=== PATIENT | female | born 1995 | race Hispanic/Latino ===

== ENCOUNTER 2023-09-15 08:07 | Inpatient (IN) | payer OTHER, SELFPAY ==
[2023-09-15] MEDS ORDERED: LACTATED RINGERS 500 ML 500 ML IV PRN (08:30)
[2023-09-15] MEDS ORDERED: EPHEDRINE SULFATE 50 MG/ML AMPULE IVP PRN (08:30)
[2023-09-15] MEDS ORDERED: ROPIVACAINE 0.2% 2MG/ML 100ML VIAL EP SCH (08:30)
[2023-09-15] MEDS ORDERED: NALOXONE HCL 0.4 MG/1 ML ML IV PRN (08:30)
[2023-09-15] MEDS ORDERED: MEPERIDINE-PF 50 MG/ML SYG IVP PRN (08:30)
[2023-09-15] MEDS ORDERED: PROMETHAZINE HCL 25 MG/ML 1ML AMPULE IM PRN (08:30)
[2023-09-15] MEDS ORDERED: LIDOCAINE HCL 1% 20 ML VIAL ONE (08:43)
[2023-09-15] MEDS: LACTATED RINGERS 1000ML 1,000 ML IV PRN (08:47)
[2023-09-15] MEDS: AMPICILLIN 2GM+NS 100ML 100 ML IV SCH (08:47)
[2023-09-15 08:49] LABS: MEAN CORPUSCULAR HEMOGLOBIN 29.3 pg (27.0-33.0); MEAN CORPUSCULAR HGB CONC 33.9 g/dL (32.0-36.0); MEAN CORPUSCULAR VOLUME 86.5 fL (79-99); RED BLOOD CELL COUNT(AUTO) 4.16 MIL/uL (4.00-5.50); RED CELL DISTRIBUTION WIDTH 15.4 % (11.0-15.5); WHITE BLOOD COUNT (AUTO) 4.9 K/uL (4.8-10.8)
[2023-09-15 08:50] LABS: ADD UA MICROSCOPIC YES; APPEARANCE,URINE CLEAR (CLEAR); BILIRUBIN,URINE NEGATIVE (NEGATIVE); COLOR,URINE LIGHT-YELLOW (YELLOW); GLUCOSE, URINE (UA) NEGATIVE (NEGATIVE); KETONES,URINE 20 mg/dL (NEGATIVE); LEUKOCYTE ESTERASE ,URINE 250 Leu/uL (NEGATIVE); NITRATE,URINE NEGATIVE (NEGATIVE); OCCULT BLOOD,URINE NEGATIVE (NEGATIVE); PROTEIN,URINE 10 mg/dL (NEGATIVE); UROBILINOGEN,URINE 0.2 mg/dL (0.2-1.0)
[2023-09-15 08:52] LABS: MUCUS,URINE RARE LPF (None Seen); RBC,URINE 0-1 /HPF (0-1); SQUAMOUS EPITHELIAL CELL,UR MOD /HPF (0-2)
[2023-09-15 09:02] LABS: AMPHET/METH SCREEN,URINE NEGATIVE (NEGATIVE); BARBITURATE SCREEN, URINE NEGATIVE (NEGATIVE); BENZODIAZEPINES SCREEN,URINE NEGATIVE (NEGATIVE); CANNABINOID SCREEN,URINE NEGATIVE (NEGATIVE); COCAINE SCREEN,URINE NEGATIVE (NEGATIVE); OPIATE SCREEN,URINE NEGATIVE (NEGATIVE); PHENCYCLIDINE SCREEN,URINE NEGATIVE (NEGATIVE)
[2023-09-15 09:23] LABS: HIV 1&2 ANTIBODY Non-Reactive (Negative); HIV-1 p24 Antigen Non-Reactive (Negative)
[2023-09-15] MEDS ORDERED: METHYLERGONOVINE MALEATE 0.2 MG/1 ML ML IM SCH (09:40)
[2023-09-15] MEDS ORDERED: ACETAMINOPHEN 325 MG TAB PO PRN (10:30)
[2023-09-15] MEDS ORDERED: ACETAMINOPHEN WITH CODEINE 1 TAB TAB PO PRN (10:30)
[2023-09-15] MEDS ORDERED: OXYTOCIN-LR 30 UNITS/500ML 500 ML IV SCH (10:30)
[2023-09-15] MEDS ORDERED: LANOLIN 30GM OINTMENT TP PRN (10:30)
[2023-09-15] MEDS: OXYTOCIN-LR 30 UNITS/500ML 500 ML IV SCH (10:43)
[2023-09-15] MEDS: IBUPROFEN 600 MG TABLET PO PRN (11:29)
[2023-09-15 14:34] LABS: RAPID PLASMA REAGIN NONREACTIVE (NONREACTIVE)
[2023-09-15 15:40] VITALS: BP 112/70; PULSE 61; RESP 20
[2023-09-15] MEDS: BENZOCAINE/LANOLIN/ALOE VERA 60 ML AEROSOL TP PRN (17:20)
[2023-09-15] MEDS: WITCH HAZEL 1 PAD TP PRN (17:21)
[2023-09-15] MEDS: DIPH,PERTUSS(ACELL),TET VAC/PF 0.5 ML VIAL IM PRN (17:22)
[2023-09-15 18:52] VITALS: BP 108/63; PULSE 52; RESP 13
[2023-09-15 19:30] VITALS: PULSE 62
[2023-09-15] MEDS: DOCUSATE SODIUM 100 MG CAP PO SCH (20:21)
[2023-09-15] MEDS: AMPICILLIN 1GM+NS 50ML 50 ML IV SCH (20:58)
[2023-09-15 22:04] LABS: HEMATOCRIT 31.4 % (36-48); MEAN CORPUSCULAR HEMOGLOBIN 29.1 pg (27.0-33.0); MEAN CORPUSCULAR HGB CONC 33.1 g/dL (32.0-36.0); MEAN CORPUSCULAR VOLUME 87.7 fL (79-99); RED BLOOD CELL COUNT(AUTO) 3.58 MIL/uL (4.00-5.50); RED CELL DISTRIBUTION WIDTH 15.3 % (11.0-15.5); WHITE BLOOD COUNT (AUTO) 6.5 K/uL (4.8-10.8)
[2023-09-15 23:24] VITALS: BP 109/66; PULSE 70; RESP 18
[2023-09-16 04:07] VITALS: BP 112/63; PULSE 67; RESP 17
[2023-09-16 07:15] VITALS: BP 130/75; PULSE 65; RESP 18
[2023-09-16 07:36] LABS: HEMATOCRIT 33.4 % (36-48); MEAN CORPUSCULAR HGB CONC 32.6 g/dL (32.0-36.0); MEAN CORPUSCULAR VOLUME 88.8 fL (79-99); RED BLOOD CELL COUNT(AUTO) 3.76 MIL/uL (4.00-5.50); RED CELL DISTRIBUTION WIDTH 15.5 % (11.0-15.5)
[2023-09-16 11:15] VITALS: BP 108/67; PULSE 61; RESP 20
[2023-09-16 15:00] VITALS: PULSE 67; RESP 20
== END 2023-09-16 16:35 | disposition home or self-care (01) | DRG 807 ==
LOC: EDH 08:07 → LDH 08:09 → OBSVTOIN 08:09 → WSH 12:50
PROVIDERS: ADMIT Obstetrics & Gynecology; ATTEND Obstetrics & Gynecology
PROC: 10E0XZZ Delivery of Products of Conception, External Approach (ICD-10-PCS; principal; 2023-09-15)
PROC: 0KQM0ZZ Repair Perineum Muscle, Open Approach (ICD-10-PCS; 2023-09-15)
PROC: 0UQMXZZ Repair Vulva, External Approach (ICD-10-PCS; 2023-09-15)
PROC: 10907ZC Drainage of Amniotic Fluid, Therapeutic from Products of Conception, Via Natural or Artificial Opening (ICD-10-PCS; 2023-09-15)
DX: O70.1 Second degree perineal laceration during delivery (principal); Z37.0 Single live birth; O71.82 Other specified trauma to perineum and vulva; Z3A.37 37 weeks gestation of pregnancy
CPT/HCPCS: 36415; 80305; 81001; 85027; 86592; 86701; 86850; 86900; 86901; 87086; 87340; 87390; 90715; A4351; G0378; J0290; J7120